=== PATIENT | female | born 1965 | race Caucasian/White ===

== ENCOUNTER → 2020-01-14 07:33 | Outpatient (BNVA) | payer MEDICARE, MEDICAID, SELFPAY | PROVIDERS: Visit Provider Nurse Practitioner | DX: F43.12 Post-traumatic stress disorder, chronic (principal); F29 Unspecified psychosis not due to a substance or known physiological condition; F44.81 Dissociative identity disorder | CPT/HCPCS: 99214 ==

== ENCOUNTER → 2020-07-07 07:32 | Outpatient (BNVA) | payer MEDICARE, MEDICAID, SELFPAY | PROVIDERS: Visit Provider Nurse Practitioner | DX: F43.12 Post-traumatic stress disorder, chronic (principal); F44.81 Dissociative identity disorder; F29 Unspecified psychosis not due to a substance or known physiological condition; Z79.899 Other long term (current) drug therapy | CPT/HCPCS: 99213 ==

== ENCOUNTER → 2020-07-19 08:33 | Outpatient (BNVA) | payer MEDICARE, MEDICAID, SELFPAY | PROVIDERS: Visit Provider Nurse Practitioner | DX: Z79.899 Other long term (current) drug therapy (principal) | CPT/HCPCS: 80061; 83036 ==

== ENCOUNTER → 2020-11-03 07:42 | Outpatient (BNVA) | payer MEDICARE, MEDICAID, SELFPAY | PROVIDERS: Visit Provider Nurse Practitioner | DX: F43.12 Post-traumatic stress disorder, chronic (principal); F44.81 Dissociative identity disorder; F29 Unspecified psychosis not due to a substance or known physiological condition; Z79.899 Other long term (current) drug therapy | CPT/HCPCS: 99214 ==

== ENCOUNTER 2021-03-15 18:58 | Emergency (ER) | payer MEDICARE, MEDICAID, SELFPAY ==
[2021-03-15 19:12] VITALS: BP 135/70; PULSE 98; RESP 18; TEMP 36.7; O2SAT 96; BMI 65.2
--- NOTE | 2021-03-15 20:21 | ED_ITS ---
HPI - Wound/Laceration General: Chief Complaint: Wound/Laceration Stated Complaint: post spiderbite symptoms Time Seen by Provider: 03/15/21 20:12 Source: patient Mode of arrival: ambulatory Limitations: no limitations History of Present Illness: HPI narrative: 55-year-old female states she has had a wound to her right breast over the last 3 weeks. States that she began treatment had by nurse practitioner and they were concerned it was a brown recluse bite. She does have an area of skin breakdown roughly 3 cm with erythema to her right breast. Patient states she originally took Bactrim is currently on clindamycin but has no improvement. She denies any fevers. Denies any pains. Associated symptoms: Denies chills, fever(s), nausea or vomiting Review of Systems Const: Denies: fever(s), chills, body aches or change in appetite Eyes: Denies: blurry vision or eye discomfort ENMT: Denies: throat pain or dental pain Card: Denies: chest pain Resp: Denies: dyspnea GI: Denies: abdominal pain, nausea, vomiting or diarrhea : Denies: dysuria Musc: Denies: neck pain or back pain Skin/Breast: Reports: erythema; Denies: rash Neuro: Denies: headache(s) Psych: Denies: depression [place]/Lymph: Denies: easy bruising All/Imm: Denies: urticaria PFSH ED PFSH: Medical History (Updated 03/15/21 @ 21:25 by Brandon Husain MD) Dissociative identity disorder Post-traumatic stress disorder, chronic Unspecified psychosis not due to a substance or known physiological condition Physical Exam Const: COMMON NORMALS: no acute distress, patient oriented x3 and healthy appearing HENMT: COMMON NORMALS: normocephalic and atraumatic HEAD & SCALP: normocep halic and atraumatic Eye: COMMON NORMALS: Equal, round and reactive pupils present and EOMs intact bilaterally PUPIL: Yes Equal, round and reactive pupils present Neck/C-Spine: COMMON NORMALS: full ROM and supple Chest: COMMONS NORMALS: normal inspection of the chest and normal palpation of entire chest wall Resp: COMMON NORMALS: normal respiratory effort, No retractions, No use of accessory muscles and clear to auscultation bilaterally AUSCULTATION: clear to auscultation bilaterally Cardio: COMMON NORMALS: regular rate, regular rhythm and No murmurs present (Cardio) RATE: regular rate RHYTHM: regular rhythm GI: COMMON NORMALS: Normal to inspection, nondistended, normoactive bowel sounds present, Soft to palpation, non-tender and no masses PALPATION: Yes Soft to palpation Extremity: COMMON NORMALS: normal to inspection and full ROM Neuro: COMMON NORMALS: patient oriented x3, moves all extremities and no focal motor deficits Psych: COMMON NORMALS: mental status grossly normal, Normal thought process present and cooperative THOUGHT PROCESS: Normal thought process present Skin: COMMON NORMALS: no rashes or lesions noted NARRATIVE SKIN EXAM: Erythema to right breast on the medial aspect of the breast with the wound on the center portion of her chest is roughly 3 cm in diameter with some necrosis and open. No drainage from the wound at this time. GENERAL SKIN EXAM: no rashes or lesions noted Course Vital Signs: Vital signs: Vital Signs Temperature 98.0 F 03/15/21 19:12 Pulse Rate 98 03/15/21 19:12 Respiratory Rate 18 03/15/21 19:12 Blood Pressure 135/70 03/15/21 19:12 Pulse Oximetry 96 03/15/21 19:12 MDM - Wound/Laceration MDM Narrative: Medical decision making narrative: Patient presents here with cellulitis to her breast. She does have a wound appearance with some necrosis could be a spider bite. Did a bedside ultrasound did not find a fluid pocket. Will place patient on Bactrim and have her follow-up with wound care. She is return if she has any worsening of the area edema. She understands and agrees to plan. Lab Data: Labs: Lab Results 03/15/21 03/15/21 03/15/21 Range/Units 20:21 20:21 20:21 WBC 6.9 (4.0-10.0) 10^3/ uL RBC 4.76 (4.1-5.3) 10^6/u L Hgb 14.0 (11.5-15.3) g/dL Hct 43.0 (37.0-47.0) % MCV 90.3 (81-99) fL MCH 29.4 (28.0-34.0) pg MCHC 32.6 (30.0-36.0) g/dL RDW 13.3 (12.1-15.1) % Plt Count 214 (130-400) 10^3/c mm MPV 11.3 H (7.4-10.4) fL Neut % (Auto) 64.0 % Lymph % (Auto) 22.9 % [place] % (Auto) 7.4 % Eos % (Auto) 3.6 % Baso % (Auto) 1.4 % Neut # (Auto) 4.41 (1.8-7.7) 10^3/u L Lymph # (Auto) 1.6 (0.8-4.8) 10^3/u L [place] # (Auto) 0.5 (0.2-0.9) 10^3/u L Eos # (Auto) 0.3 (0.0-0.8) 10^3/u L Baso # (Auto) 0.1 (0.0-0.1) 10^3/u L Nucleated RBC % (a uto) 0 % Nucleated RBCs # 0.0 /100WBC Sodium 138 (136-145) mmol/L Potassium 4.4 (3.5-5.1) mmol/L Chloride 96 L (98-107) mmol/L Carbon Dioxide 29 (22-29) mmol/L Anion Gap 17.4 (5-19) BUN 35 H (6-20) mg/dL Creatinine 0.7 (0.5-0.9) mg/dL GFR Calculation 86.6 L (90-130) mL/min Glucose 186 H (65-115) mg/dL Calculated Osmolal ity 299 H (285-295) mOsm/k g Lactic Acid 2.1 (0.5-2.2) mmol/L Calcium 9.6 (8.5-10.5) mg/dL Total Bilirubin 0.3 (0.15-1.2) mg/dL AST 44 H (0-32) U/L ALT 52 H (0-33) U/L Alkaline Phosphata se 274 H (35-105) IU/L Total Protein 6.9 (6.6-8.7) g/dL Albumin 4.1 (3.5-5.2) g/dL Globulin 2.8 (1.3-4.6) g/dL Imaging Data^: CT Chest: Attestation: I personally reviewed and interpreted this imaging study as follows: Radiologist's impression: [address] [place] [address] CT Scan Report Signed Patient: Ebony Yao Unit #: [id number] : 1965 Age/Sex: 55 / F ADM Date: 03/15/21 Loc: ER Room/Bed: Attending Dr: Ordering Provider/Ordering MD: Brandon Husain MD Date of Service: 03/15/21 Procedure(s): CT chest w con* [id number] Accession Number(s): [id number] Report Number: [id number] PROCEDURE INFORMATION: Exam: CT Chest With Contrast; Diagnostic Exam date and time: 03/15/2021 8:26 PM Age: 55 years old Clinical indication: Other: Recluse bite; Patient HX: Recluse spider bite to RT upper breast. ; Additional info: Right breast wound TECHNIQUE: Imaging protocol: Diagnostic computed tomography of the chest with contrast. Radiation optimization: All CT scans at this facility use at least one of these dose optimization techniques: automated exposure control; mA and/or kV adjustment per patient size (includes targeted exams where dose is matched to clinical indication); or iterative reconstruction. Contrast material: OMNI 300; Contrast volume: 95 ml; Contrast route: INTRAVENOUS (IV); COMPARISON: No relevant prior studies available. RADIATION DOSE METRICS: Total DLP (mGy-cm): 982.06 FINDINGS: Lungs: Unremarkable. No consolidation. No masses. Pleural spaces: Unremarkable. No pneumothorax. No pleural effusion. Heart: Unremarkable. No cardiomegaly. No pericardial effusion. Aorta: Unremarkable. No aortic aneurysm. Lymph nodes: Unremarkable. No enlarged lymph nodes. Bones/joints: Unremarkable. No acute fracture. Soft tissues: Soft tissue edema soft tissue air in the medial right lower breast soft tissues superficially. CT/CT chest w con* [id number] IMPRESSION: 1. Focal region soft tissue edema and unorganized superficial soft tissue fluid with foci of soft tissue gas in the medial lower right breast area 2. Negative for intrathoracic abnormality. Radiation Dose CTDIVOL = (mGy): DLP = 982.06 Discharge Plan Discharge Patient Disposition: Home Clinical Impression: Cellulitis Qualifiers: Site of cellulitis: trunk Site of cellulitis of trunk: chest wall Qualified Code(s): L03.313 - Cellulitis of chest wall Condition: Stable Prescriptions: New Bactrim DS 800-160 mg tablet 1 tab PO BID 10 Days Qty: 20 RF: 0 No Action quetiapine [Seroquel] 200 mg tablet 200 mg PO DAILY PRN (Reason: anxiety/agitation/psychosis) Qty: 30 RF: 5 nystatin 100,000 unit/mL suspension 4 ml PO QID RF: 0 clindamycin HCl 300 mg capsule 300 mg PO Q8H RF: 0 fluconazole 150 mg tablet 150 mg PO Q3D RF: 0 lorazepam [Ativan] 0.5 mg Tablet 0.5 mg PO BID PRN (Reason: Agitation) RF: 0 Vitamin C 500 mg Tablet 500 mg PO DAILY RF: 0 ibuprofen 200 mg Tablet 800 mg PO PRN RF: 0 Nyamyc 100,000 unit/gram powder 1 applic TOPICAL TID RF: 0 Prozac 20 mg capsule 60 mg PO QAM RF: 0 Seroquel 400 mg tablet 800 mg PO BEDTIME RF: 0 Discharge Orders: Discharge ED (Routine); Ordered 03/15/21 Ordered By: Brandon Husain Referrals: [facility], [Staff Physician] - 1-3 days Discharge Diet: Advance as tolerated Discharge Activity: Resume usual activity Patient Instructions: Cellulitis (ED) Coding Level of Care Code ED Color Printer Operator for Sharon Fwanna Exam Comprehensive
[2021-03-15 20:28] LABS: Basophils # 0.1 10^3/uL (0.0-0.1); Basophils % 1.4 %; Eosinophils # 0.3 10^3/uL (0.0-0.8); Eosinophils % 3.6 %; Lymphocytes # 1.6 10^3/uL (0.8-4.8); Lymphocytes % 22.9 %; Mean Corpuscular HGB Conc 32.6 g/dL (30.0-36.0); Mean Corpuscular Hemoglobin 29.4 pg (28.0-34.0); Mean Corpuscular Volume 90.3 fL (81-99); Mean Platelet Volume 11.3 fL (7.4-10.4); Monocytes # 0.5 10^3/uL (0.2-0.9); Monocytes % 7.4 %; Neutrophils # 4.41 10^3/uL (1.8-7.7); Nucleated Red Blood Cells % 0 %; Platelet Count 214 10^3/cmm (130-400); Red Blood Count 4.76 10^6/uL (4.1-5.3); Red Cell Distribution Width 13.3 % (12.1-15.1); White Blood Count 6.9 10^3/uL (4.0-10.0)
[2021-03-15] MEDS: iohexol 300 mg/mL 100 mL Btl IV (20:40)
[2021-03-15] MEDS: vancomycin 1,000 MG in sodium chloride 0.9% 250 ML 250 MG IV (20:45)
[2021-03-15 20:48] LABS: Lactic Sepsis W/Reflex 2.1 mmol/L (0.5-2.2)
[2021-03-15 20:54] LABS: Alanine Aminotransferase 52 U/L (0-33); Albumin Level 4.1 g/dL (3.5-5.2); Alkaline Phosphatase 274 IU/L (35-105); Anion Gap 17.4 (5-19); Aspartate Amino Transferase 44 U/L (0-32); Blood Urea Nitrogen 35 mg/dL (6-20); Calcium 9.6 mg/dL (8.5-10.5); Carbon Dioxide 29 mmol/L (22-29); Chloride 96 mmol/L (98-107); Globulin 2.8 g/dL (1.3-4.6); Glomerular Filtration Rate 86.6 mL/min (90-130); Glucose 186 mg/dL (65-115); Osmolality Calculated 299 mOsm/kg (285-295); Potassium 4.4 mmol/L (3.5-5.1); Sodium 138 mmol/L (136-145); Total Bilirubin 0.3 mg/dL (0.15-1.2); Total Protein 6.9 g/dL (6.6-8.7)
[2021-03-15 21:59] VITALS: PULSE 85; RESP 19; O2SAT 96
--- NOTE | 2021-03-16 09:55 | DCPLANNER ---
Addendum entered by Mely Kathleen 05/12/21 06:51: Patient had an appointment scheduled for 03.18.[address] Phillip at [facility] - patient did attend appointment. Original Note: manager transmission had message to schedule a follow up appointment for patient with [facility]ound Care for cellulites. manager transmission called the Wound Care clinic, spoke with Valentine, gave clinic patients information. A follow up appointment was scheduled for Thursday, March 18, 2021 at 10:[address] Phillip. manager transmission called patient and gave patient the appointment information.
== END 2021-03-15 21:59 | disposition home or self-care (01) ==
PROVIDERS: Nurse Practitioner Family; Emergency Provider Emergency Medicine
DX: L03.313 Cellulitis of chest wall (principal)
CPT/HCPCS: 71260; 80053; 83605; 85025; 87040; 87205; 96365; 99283; J3370; J7050; Q9967

== ENCOUNTER 2021-03-18 09:32 | Outpatient (CLI) | payer MEDICARE, MEDICAID, SELFPAY | END 2021-03-18 09:33 | disposition home or self-care (01) | LOC: WOUND 09:35 | PROVIDERS: Visit Provider Surgery | DX: L98.492 Non-pressure chronic ulcer of skin of other sites with fat layer exposed (principal) | CPT/HCPCS: 11042; 87070; 87176; 87205; G0463 ==

== ENCOUNTER → 2021-04-05 10:01 | Outpatient (BNVA) | payer MEDICARE, MEDICAID, SELFPAY | PROVIDERS: Visit Provider Nurse Practitioner | DX: F43.12 Post-traumatic stress disorder, chronic (principal); F29 Unspecified psychosis not due to a substance or known physiological condition; F44.81 Dissociative identity disorder | CPT/HCPCS: 99214 ==